=== PATIENT | female | born 1990 | race Caucasian/White ===

== ENCOUNTER 2018-06-28 10:55 | Emergency (ER) | payer BC | END 2018-06-28 12:12 | disposition home or self-care (01) | LOC: FTE 10:55 | DX: M54.5 Low back pain (principal); J45.909 Unspecified asthma, uncomplicated | CPT/HCPCS: 99283 ==

== ENCOUNTER 2018-12-20 10:11 | Emergency (ER) | payer BC ==
[2018-12-20] MEDS: ONDANSETRON (ODT) 4 MG TAB ODT (10:43)
== END 2018-12-20 10:50 | disposition home or self-care (01) ==
LOC: FTE 10:11
DX: R11.2 Nausea with vomiting, unspecified (principal); J45.909 Unspecified asthma, uncomplicated; R19.7 Diarrhea, unspecified
CPT/HCPCS: 99283; Z7502